=== PATIENT | female | born 1995 | race African-American/Black ===

== ENCOUNTER 2019-01-23 10:34 | Emergency (ER) | payer OTHER ==
[2019-01-23 11:22] LABS: Bilirubin Negative (Negative); Blood, Urine Negative (Negative); Clarity Turbid (Clear); Glucose, Urine (Dipstick) Normal (Negative); Leukocyte 500 Leu/uL (Negative); Mucous/LPF 1+ LPF (<2+); Nitrite 1+ (Negative); Protein, Urine (Dipstick) 30 mg/dL (Neg-Trace); Transitional Epithelial 0-3 HPF (None Seen)
[2019-01-23 11:30] LABS: Bacteria/HPF 4+ HPF (None Seen)
[2019-01-23 11:31] LABS: RBC/HPF 0-3 HPF (0-3); WBC/HPF 21-50 HPF (0-3)
[2019-01-23 11:39] LABS: #Eosinphils 0.1 thou/uL (0.0-0.7); #Lymphocytes 1.8 thou/uL (1.20-3.40); #Monocytes 0.5 thou/uL (0.11-0.59); #Neutrophils 2.8 thou/uL (1.40-6.50); %Basophils 0.4 % (0.0-1.0); %Eosinophils 2.4 % (0.0-10.0); %Lymphocytes 34.8 % (21.0-51.0); %Monocytes 8.9 % (0.0-10.0); %Neutrophils 53.4 % (42.0-75.0); Hemoglobin 10.9 g/dL (12.0-16.0); Mean Corpuscular HGB CONC 32.6 g/dL (32.0-36.0); Mean Corpuscular Hemoglobin 24.7 pg (27.0-31.0); Mean Corpuscular Volume 75.8 fL (78.0-98.0); Mean Platelet Volume 8.1 fL (7.4-10.4); Platelet Count 231 thou/uL (130-400); RBC Distribution Width 15.4 % (11.5-14.5); Red Blood Cell (RBC) Count 4.39 mill/uL (4.20-5.40); White Blood Cell (WBC) Count 5.3 thou/uL (4.8-10.8)
--- NOTE | 2019-01-23 11:39 | ULT ---
Obstetrical ultrasound INDICATION: History of fall and uterine fibroids FINDINGS: There is a single live intrauterine gestation with cardiac activity at 144 bpm. The placenta is poste rior in location without evidence of previa. The fetus is in breech presentation. The estimated weight 193 g. Cervical length is 3.7 cm. There is a 5.3 cm partially calcified fibroid within t he left lower uterine body. Visualized NADIA appears within normal limits. No definite subchorionic hemorrhage is evident. IMPRESSION: Single live intrauterine gestation. Partially calcified fibroid within the posterior left lower uterine body.
[2019-01-23] MEDS ORDERED: cefTRIAXone\\ROCEPHIN 2 GM VIAL ONE (11:45)
--- NOTE | 2019-01-23 11:53 | RAD ---
XR Chest Pa Lat STANDARD HISTORY: Syncope COMPARISON: None FINDINGS: The heart size is normal. The lungs are well expanded without focal areas of consolidation, pneumothorax or pleural effusions. IMPRESSION: No radiographic evidence of acute cardiopulmonary process.
[2019-01-23 12:01] LABS: ALT (SGPT) 8 U/L (8-55); AST (SGOT) 11 U/L (5-34); Albumin 3.9 g/dL (3.5-5.0); Alkaline Phosphatase 70 U/L (40-150); Anion Gap 13 mmol/L (10-20); BUN (Urea Nitrogen) 5 mg/dL (7.0-18.7); Bilirubin, Total 0.3 mg/dL (0.2-1.2); CK (CPK) 89 U/L (29-168); Calc. Creatinine Clearance 0 mL/min (70-130); Calcium 9.1 mg/dL (7.8-10.44); Carbon Dioxide 22 mmol/L (22-29); Chloride 106 mmol/L (98-107); Estimated GFR-MDRD Greater than 90; Globulin 2.9 g/dL (2.4-3.5); Glucose 85 mg/dL (70-105); Lipase Less than 4 U/L (8-78); Potassium 3.5 mmol/L (3.5-5.1); Protein, Total 6.8 g/dL (6.0-8.3); Sodium 137 mmol/L (136-145)
--- NOTE | 2019-01-24 13:42 | EKG ---
Test Reason : Blood Pressure : / mmHG Vent. Rate : 089 BPM Atrial Rate : 089 BPM P-R Int : 152 ms QRS Dur : 084 ms QT Int : 350 ms P-R-T Axes : 008 023 018 degrees QTc Int : 425 ms Normal sinus rhythm Normal ECG Confirmed by JAD RICHARDSON, RODERICK ([id number]), editor house organ TYLER MURRY ([id number]) on 01/24/2019 1:42:45 PM Referred By: Confirmed By:RODERICK STREET MD
== END 2019-01-23 12:42 | disposition home or self-care (01) ==
LOC: ERS 10:34
DX: O99.89 Other specified diseases and conditions complicating pregnancy, childbirth and the puerperium (principal); R55 Syncope and collapse; O23.42 Unspecified infection of urinary tract in pregnancy, second trimester; N39.0 Urinary tract infection, site not specified; Z3A.17 17 weeks gestation of pregnancy
CPT/HCPCS: 71046; 76815; 80053; 81003; 81015; 82550; 83690; 83880; 84484; 85025; 87077; 87086; 87186; 93005; 96365; J0696

== ENCOUNTER 2019-02-17 15:14 | Day surgery (SDC) | payer MEDICAID ==
[2019-02-17 16:42] LABS: #Eosinphils 0.2 thou/uL (0.0-0.7); #Lymphocytes 3.2 thou/uL (1.20-3.40); #Monocytes 0.5 thou/uL (0.11-0.59); #Neutrophils 5.4 thou/uL (1.40-6.50); %Basophils 0.4 % (0.0-1.0); %Eosinophils 2.3 % (0.0-10.0); %Lymphocytes 34.1 % (21.0-51.0); %Monocytes 5.6 % (0.0-10.0); %Neutrophils 57.6 % (42.0-75.0); Hemoglobin 10.6 g/dL (12.0-16.0); Mean Corpuscular HGB CONC 33.1 g/dL (32.0-36.0); Mean Corpuscular Hemoglobin 25.1 pg (27.0-31.0); Mean Corpuscular Volume 75.8 fL (78.0-98.0); Mean Platelet Volume 7.5 fL (7.4-10.4); Platelet Count 227 thou/uL (130-400); Red Blood Cell (RBC) Count 4.24 mill/uL (4.20-5.40); White Blood Cell (WBC) Count 9.4 thou/uL (4.8-10.8)
[2019-02-17 17:12] LABS: ALT (SGPT) 9 U/L (8-55); AST (SGOT) 11 U/L (5-34); Albumin 3.7 g/dL (3.5-5.0); Alkaline Phosphatase 73 U/L (40-150); Anion Gap 13 mmol/L (10-20); BUN (Urea Nitrogen) 6 mg/dL (7.0-18.7); Bilirubin, Total 0.2 mg/dL (0.2-1.2); Calc. Creatinine Clearance 0 mL/min (70-130); Calcium 9.4 mg/dL (7.8-10.44); Carbon Dioxide 22 mmol/L (22-29); Chloride 106 mmol/L (98-107); Estimated GFR-MDRD Greater than 90; Globulin 3.3 g/dL (2.4-3.5); Glucose 78 mg/dL (70-105); Potassium 4.3 mmol/L (3.5-5.1); Sodium 137 mmol/L (136-145)
[2019-02-17 17:19] VITALS: BMI 45.1
[2019-02-17 17:32] LABS: Bacteria/HPF None Seen HPF (None Seen); Bilirubin Negative (Negative); Blood, Urine Negative (Negative); Clarity Clear (Clear); Glucose, Urine (Dipstick) Normal (Negative); Leukocyte Negative Leu/uL (Negative); Nitrite Negative (Negative); Protein, Urine (Dipstick) Negative (Neg-Trace); RBC/HPF 0-3 HPF (0-3); Squamous Epithelial None Seen HPF (0-3); Urobilinogen Normal mg/dL (Less than 2); WBC/HPF 0-3 HPF (0-3)
--- NOTE | 2019-02-18 02:15 | SS ---
DATE: 02/17/2019 EVALUATING PHYSICIAN: Pete Sosa MD. HISTORY OF PRESENT ILLNESS: Ms. Soliman is a 23-year-old black G2, P1-0-0-1 with an estimated date of confinement per her report of 07/01/2018, who presents complaining of a 12-hour history of nausea and vomiting. She states she has vomited 3 times today. She denies vaginal bleeding or ruptured membranes. She has had limited care since she had an initial ultrasound at home . PAST OBSTETRICAL HISTORY: Includes one vaginal delivery at term, reportedly uncomplicated. PAST MEDICAL HISTORY: None. PAST SURGICAL HISTORY: None. CURRENT MEDICATIONS: vitamins. ALLERGIES: NO KNOWN ALLERGIES. SOCIAL HISTORY: Denies tobacco, alcohol, or drug use. FAMILY HISTORY: Unremarkable. REVIEW OF SYSTEMS: Denies fever, chills, diarrhea, recently ill contacts at home, vaginal bleeding or ruptured membranes. PHYSICAL EXAMINATION: VITAL SIGNS: Blood pressure is 109/61, pulse is 89. She is afebrile. GENERAL: She is pleasant and in no acute distress. ABDOMEN: Soft, nontender, and gravid. PELVIC: Deferred. heart tones are positive. LABORATORY DATA: White count 9.4, hemoglobin and hematocrit 10.6 and 32.1, platelet count 227,000. Chemistry; sodium 137, potassium 4.3, chloride 106, BUN 6, glucose 78, total bilirubin 0.2, AST 11, ALT 9, alkaline phosphatase 73. Urinalysis shows a specific gravity of 1.022 with negative protein, normal glucose, negative ketones, negative blood, negative nitrites, negative leukocyte esterase. The patient was able to tolerate clear liquids here and she had no vomiting during her period of evaluation. ASSESSMENT: 1. A 20-week intrauterine . 2. History of nausea and vomiting, now resolved. PLAN: The patient will be dismissed to home. She was told to use Gatorade for the next 24 hours and then advance slowly through a BRAT diet. She was given a prescription for Phenergan 25 mg one tablet p.o. q.6-8 hours p.r.n. nausea or vomiting, #25. She voiced understanding of her discharge instructions and was sent home in good condition. She was also given information about how to access the [facility] to initiate care there. Job ID: [id number] [facility]
== END 2019-02-17 19:00 | disposition home or self-care (01) ==
LOC: ERS 15:14 → L&D/OP 15:14 → EDSTATUS 15:34 → L&D/OP 19:00
DX: O21.2 Late vomiting of pregnancy (principal); Z3A.20 20 weeks gestation of pregnancy
CPT/HCPCS: 36415; 80053; 81003; 85025; 99283

== ENCOUNTER 2019-03-20 13:03 | Day surgery (SDC) | payer OTHER ==
--- NOTE | 2019-03-20 15:15 | PDOC.LDHP ---
Labor and Delivery H&P Chief complaint: decreased movement HPI: 23 y/o at 25w2d presents with decreased FM last night with occasional abdominal tightening. She has felt movement since arrival. Denies VB, LOF, or other concerns. ROS neg for HEENT, CV, pulm, GI, , neuro, psych, skin, musculoskeletal, or constitutional symptoms other than mentioned above. OB: Dr. Rodriguez OB History Details: 1 prior term , GHTN Current complications: none Past Medical History: None Current medications: pre-yumi vitamins, other (baby aspirin) Previous surgical history: none Allergies/Adverse Reactions: Allergies Allergy/AdvReac Type Severity Reaction Status Date / Time No Known Allergies Allergy Unverified 03/20/19 13:49 Social history: none - Physical Exam Vital signs reviewed and normal: yes General: NAD, resting Lungs: nonlabored breathing Abdomen: gravid Extremeties: no edema FHT: category 1 (140s, mod variability, AGA) [place] contractions every: none - Vaginal Exam cm dilated: 0 Effacement: 0% Station: -3 - Assessment 23 y/o at 25w2d with reassuring status (AGA on NST). No e/o PTL. - Plan -: D/c home with precautions. Advised to keep all appointments.
[2019-03-20 15:54] VITALS: BMI 46.0
[2019-03-21] MEDS ORDERED: FLU VACC QS2019-20(6MOS UP)/PF 60 MCG/0.5 ML SYRINGE IM ONE (14:00)
== END 2019-03-20 15:34 | disposition home health service (06) ==
LOC: L&D/OP 13:03
PROVIDERS: ATTEND Obstetrics & Gynecology
DX: O36.8120 Decreased fetal movements, second trimester, not applicable or unspecified (principal); O13.2 Gestational [pregnancy-induced] hypertension without significant proteinuria, second trimester; Z3A.25 25 weeks gestation of pregnancy; Z79.82 Long term (current) use of aspirin